=== PATIENT | male | born 1945 | race Caucasian/White ===

== ENCOUNTER → 2018-07-10 | Outpatient (CLI) | payer MEDICARE ==
--- NOTE | 2018-07-11 07:57 | US ---
EXAMINATION TYPE: US kidneys/renal and bladder DATE OF EXAM: 07/10/2018 COMPARISON: NONE CLINICAL HISTORY: R31.9 hematuria. Frequent urination. Patient unable to hold bladder. EXAM MEASUREMENTS: Right Kidney: 11.4 x 5.0 x 5.5 cm Left Kidney: 11.4 x 5.8 x 6.4 cm Right Kidney: No hydronephrosis or masses seen Left Kidney: Dromedary hump. Bladder: Possible two echogenic foci seen with shadow = 1.6 cm and 1.2 cm Bilateral Jets seen IMPRESSION: No hydronephrosis or nephrolithiasis. There are echogenic foci within the bladder suspicious for blad santa calculi. This could be confirmed with CT scan.
== END ==
LOC: RADUSWWP 15:30
PROVIDERS: ATTEND Urology
DX: R31.9 Hematuria, unspecified (principal)
CPT/HCPCS: 76770

== ENCOUNTER → 2019-09-07 | Outpatient (CLI) | payer MEDICARE ==
[2019-09-07 16:19] LABS: African American GFR (CKD) >90 (>60 ml/min/1.73 sqM); Blood Urea Nitrogen 21 mg/dL (9-20); Non-African American GFR(CKD) >90 (>60 ml/min/1.73 sqM)
--- NOTE | 2019-09-10 15:43 | CT ---
EXAMINATION TYPE: CT angio head DATE OF EXAM: 09/07/2019 5:07 PM COMPARISON: Outside MRI IAC June 20, 2019. HISTORY: Abnormal MRI CT DLP: 1501.7 mGycm Automated exposure control for dose reduction was used. TECHNIQUE: Performed without and with IV Contrast, patient injected with 100 mL of Isovue 370. 3D reconstructed images are created on an independent workstation and reviewed. FINDINGS: There is dominant left vertebral artery patent to basilar artery. There is hypoplastic or stenotic di stal right vertebral artery. There is a patent left posterior communicating artery. There is hypoplas tic right posterior communicating artery. There is no significant focal stenosis or aneurysmal change in the posterior circulation. There is no significant focal stenosis or aneurysmal change in the anterior circulation. Hypoplastic anterior communicating artery is present. Correlating to area of concern on recent MRI there is tangle of vessels or a vascular malformation in volving the high right parietal region with serpiginous vessels and nodularity identified for referen ce sagittal images 13 through 15, coronal images 21 through 24 and axial images 42 through 44 series 6. IMPRESSION: Confirmation of high right parietal AVM. Advise neurosurgical and/or endovascular referra l to further evaluate.
== END | disposition home or self-care (01) ==
LOC: RADCTMAIN 15:30
PROVIDERS: ATTEND Psychiatry & Neurology Neurology
DX: Q28.2 Arteriovenous malformation of cerebral vessels (principal); E11.9 Type 2 diabetes mellitus without complications
CPT/HCPCS: 82565; 84520; 70496; 36415; Q9967